=== PATIENT | female | born 1980 | race Caucasian/White ===

== ENCOUNTER 2017-03-17 07:51 | Day surgery (SDC) | payer OTHER ==
--- NOTE | 2017-03-13 11:45 | PREOPHP ---
DATE OF ADMISSION: 02/12/2016 HISTORY OF PRESENT ILLNESS: This is a 36-year-old female, 7, para 4, with 3 previous cassidy an sections and tubal ligation. This patient had been scheduled for a D and C hysteroscopy, hydroth ermal ablation for Monday the due to intractable chronic pelvic pain, menometrorrhagia, fibroid uterus, pelvic adhesions and pelvic pain, intractable. This patient had tried control pills, at this present time she has a tubal ligation after 3 sections. She does not want to take any other options since she would like to try an ablation and hydrothermal ablation to reduce the bl eeding and maybe reduce her pain. She was offered also a Mirena IUD. She was given the possibiliti es of myomectomy and lysis of adhesions as well. All these possibilities were explained to her. Sh e for an ablation to see if that will reduce her bleeding and pain and this is what she is being adm itted for. PAST MEDICAL HISTORY: She had diabetes, breast biopsy, 3 C-sections, tubal ligation and she has hyp ertension. She is on metoprolol, glipizide, metformin, vitamins. ALLERGIES: SHE IS NOT ALLERGIC TO ANY MEDICATIONS. SOCIAL HISTORY: She does not drink or smoke. FAMILY HISTORY: Diabetes. She also had a breast biopsy which was negative. PHYSICAL EXAMINATION: GENERAL APPEARANCE: Obesity. VITAL SIGNS: She weighs 164. She is 5'1, blood pressure is 100/60. She is afebrile. Pulse is 80. HEAD AND NECK: Normal. BREASTS: With fibrocystic breasts, severe, fibrocystic. No masses. Normal sinus rhythm. CHEST: Clear. HEART: Normal sinus rhythm. BACK: Abnormal. ABDOMEN: Soft, nontender, no masses. GENITALIA: Normal externally. The uterus is with irregularities with fibroids with severe pain on mobilization with adhesions. Adnexa are negative. RECTAL: None. EXTREMITIES: Normal x2. DIAGNOSES: 1. Fibroid uterus. 2. Intractable pelvic pain and menometrorrhagia, intractable. 3. Diabetes. 4. Hypertension. 5. Obesity. 6. Previous tubal ligation. She is undergoing a D and C, hysteroscopy and hydrothermal ablation. She has been advised of the po ssible risks and possible complications of the surgery with her alternatives and options. Written i nformation was provided. She had no more questions and agreed to go ahead with the procedure with f ull understanding and no more questions. Dictated By: FELICIA MANN/NTS Conf#: [id number] DID#: [id number]
[2017-03-16 11:50] VITALS: BMI 31.2
[2017-03-17] VITALS (12 sets, daily range): BP systolic 100–144; BP diastolic 63–90; PULSE 76–87; RESP 14–18; Ht 154.9 cm; Wt 78.0 kg
[~2017-03-17] VITALS: Ht 154.9 cm; Wt 78.0 kg
[~2017-03-17 07:51] MED LIST: ASPI-664 PO; ATOR40TA68 PO; CEFAZOLIN 1 GM INJ ONE; METO50TA16 PO; ONDANSETRON 4 MG INJ ONE; ROCURONIUM 50 MG INJ ONE
[2017-03-17] MEDS ORDERED: CEFAZOLIN 2 GM/50 ML (PMX) 50 ML IVPB ONE (09:00)
[2017-03-17] MEDS ORDERED: DEXTROSE 5%-LR 1,000 ML IV ONE (09:00)
[2017-03-17 09:05] LABS: ADD SCAN DIFF NO
[2017-03-17] MEDS ORDERED: LOVA20TA PO (09:06)
[2017-03-17] MEDS ORDERED: IBUP800T25 PO (09:06)
[2017-03-17] MEDS ORDERED: [UNRECOGNIZED DRUG - OTHER] (09:06)
[2017-03-17] MEDS ORDERED: GABA300C16 PO (09:06)
[2017-03-17] MEDS ORDERED: HYDR-3605 PO (09:06)
[2017-03-17 09:08] LABS: BASOPHILS % 0.5 % (0.0-2.0); EOSINOPHILS # 0.1 10^3/ul (0.0-0.5); EOSINOPHILS % 1.6 % (0.0-7.0); HEMATOCRIT 29.8 % (37.0-47.0); LYMPHOCYTES # 2.3 10^3/ul (0.8-2.9); LYMPHOCYTES % 30.7 % (15.0-51.0); MEAN CORPUSCULAR HEMOGLOBIN 21.8 pg (29.0-33.0); MEAN CORPUSCULAR HGB CONC 30.2 g/dl (32.0-37.0); MEAN CORPUSCULAR VOLUME 72.2 fl (82.0-101.0); MEAN PLATELET VOLUME 9.6 fl (7.4-10.4); MONOCYTE # 0.5 10^3/ul (0.3-0.9); MONOCYTES % 6.9 % (0.0-11.0); NEUTROPHIL # 4.6 10^3/ul (1.6-7.5); PLATELET COUNT 398 10^3/UL (140-415); RED BLOOD COUNT 4.13 10^6/ul (4.20-5.40); RED CELL DISTRIBUTION WIDTH 14.8 % (11.5-14.5); WHITE BLOOD COUNT 7.6 10^3/ul (4.8-10.8)
[2017-03-17 09:26] LABS: INR 0.93; PROTIME 12.5 Sec (12.2-14.2)
[2017-03-17 09:27] LABS: PARTIAL THROMBOPLASTIN TIME 28.9 Sec (25.0-35.0)
[2017-03-17] MEDS ORDERED: PROPOFOL 100 ML ONE (10:03)
[2017-03-17] MEDS ORDERED: FENTAnyl 50 MCG/ML VIAL ONE ×3 (10:06→11:31)
--- NOTE | 2017-03-17 10:13 | HPN ---
Date/Time of Note Date/Time of Note DATE: 03/17/17 TIME: 10:12 Interval H&P Admission Note Pt. seen H&P reviewed: No system changes FELICIA DUBON MD Mar 17, 2017 10:12
--- NOTE | 2017-03-17 10:15 | RADRPT ---
Vent Rate: 84 bpm RR Interval: 0 msec [place] Interval: 162 msec QRS Duration: 72 msec QT Interval: 396 msec QTC Interval: 467 msec P-R-T [place]: 58 - 29 - 19 degrees Normal sinus rhythm Normal ECG Electronically Signed By: Primo Christian [id number]
[2017-03-17] MEDS ORDERED: DEXAMETHASONE 4 MG/ML 1 ML INJ ONE (10:25)
[2017-03-17] MEDS ORDERED: LIDOCAINE 2% (SDV) 5 ML INJ ONE (10:25)
--- NOTE | 2017-03-17 11:12 | PD.PPDC ---
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
[2017-03-17] MEDS ORDERED: KETOROLAC 30 MG INJ IV STA (11:16)
--- NOTE | 2017-03-17 11:16 | OPR ---
Date/Time of Note Date/Time of Note DATE: 03/17/17 TIME: 11:13 Operative Report Procedure Date: Mar 17, 2017 Preoperative Diagnosis INTRACTABLE PELVIC PAIN AND BLEEDING FIBROID UTERUS PREVIOUS C/STL DIABETES Postoperative Diagnosis SAME Operation Performed FX D&C HYSTEROSCOPY HYDROTHERMAL ABLATION Anesthesia: general Anesthesiologist: ITZEL ANDERSON Estimated Blood Loss: minimal Complications: None Pt Condition Post Procedure: stable Disposition: PACU FELICIA DUBON MD Mar 17, 2017 11:16
[2017-03-17] MEDS ORDERED: KETOROLAC 30 MG INJ IV ONE (11:30)
[2017-03-17] MEDS ORDERED: ONDANSETRON 4 MG INJ IV PRN (11:30)
[2017-03-17] MEDS ORDERED: LABETALOL HCL 20MG INJ IV PRN (11:30)
[2017-03-17] MEDS ORDERED: FENTAnyl 50 MCG/ML VIAL IV PRN ×3 (11:30)
[2017-03-17] MEDS ORDERED: hydrALAzine 20 MG INJ IV PRN (11:30)
[2017-03-17] MEDS ORDERED: MEPERIDINE 25 MG INJ IV PRN (11:30)
[2017-03-17] MEDS ORDERED: OXYCODONE/ACETAMINOPHEN (5/325) TAB PO PRN ×2 (11:30)
[2017-03-17] MEDS ORDERED: DIPHENHYDRAMINE 50 MG INJ IV PRN (11:30)
[2017-03-17] MEDS ORDERED: DIPHENHYDRAMINE 50 MG INJ ONE (11:32)
--- NOTE | 2017-03-17 11:48 | OPR ---
DATE OF OPERATION: 03/17/2017 PROCEDURES: 1. Fractional D and C. 2. Hysteroscopy. 3. Hydrothermal ablation. PREOPERATIVE DIAGNOSES: 1. Intractable pelvic pain and bleeding. 2. Fibroid uterus. 3. Previous section, tubal ligation, and diabetes. POSTOPERATIVE DIAGNOSES: 1. Intractable pelvic pain and bleeding. 2. Fibroid uterus. 3. Previous section, tubal ligation, and diabetes. SURGEON: Felicia Dale MD ANESTHESIOLOGIST: Dr. Victoria. ANESTHESIA: General. DESCRIPTION OF PROCEDURE: The patient was given general anesthesia, placed in the lithotomy positio n. The perineal and vaginal area were prepped and draped. ____ examination under anesthesia reveal ed that there was marked pelvic prolapse. The uterus was not prolapsed. The cervix was held with a forceps and endocervical curettage was done. The uterus was sounded to a depth of 11 cm, dilated t o a #7 Hegar dilator, and the hysteroscope was placed. The hysteroscopy was done finding fibroids t hat were protruding through the endometrial area posteriorly and superiorly. They were not in the c avity, but they were submucosal fibroids. The hysteroscope media was injected and the temperature w as up to 90 degrees Celsius and the ablation with hydrothermal ablation was started for 10 minutes. The lining of the uterus appeared to change in color after finishing the procedure. Prior to that, scraping of the endometrium was done and some tissue was sent for histopathology. The procedure wa s finished by removing all the instruments. The patient tolerated the procedure well and left the O R awake and stable. Sponge counts and instrument counts were correct. Intravenous antibiotics were given for prophylaxis. Dictated By: FELICIA MANN/LUL Conf#: [id number] DID#: [id number]
[2017-03-17 13:35] LABS: ADD UMIC YES; UR ASCORBIC ACID NEGATIVE (NEGATIVE); UR BACTERIA FEW /HPF (NONE SEEN); UR BILIRUBIN (Dip) NEGATIVE (NEGATIVE); UR BLOOD (Dip) 1+ mg/dL (NEGATIVE); UR CLARITY SLIGHTLY CLOUDY (CLEAR); UR COLOR YELLOW (YELLOW); UR GLUCOSE (Dip) 1+ mg/dL (NEGATIVE); UR KETONES (Dip) NEGATIVE (NEGATIVE); UR LEUKOCYTE ESTERASE (Dip) TRACE Leu/ul (NEGATIVE); UR NITRITE (Dip) NEGATIVE (NEGATIVE); UR RBC 0 /HPF (0-5); UR SPECIFIC GRAVITY (Dip) 1.012 (1.003-1.030); UR SQUAMOUS EPITHELIAL CELL FEW /HPF (FEW); UR TOTAL PROTEIN (Dip) NEGATIVE (NEGATIVE); UR UROBILINOGEN (Dip) NEGATIVE (NEGATIVE)
== END 2017-03-17 13:40 | disposition home or self-care (01) ==
LOC: SDS 07:51
PROVIDERS: ATTEND Obstetrics & Gynecology
DX: D25.9 Leiomyoma of uterus, unspecified (principal); I10 Essential (primary) hypertension; E11.9 Type 2 diabetes mellitus without complications; E66.9 Obesity, unspecified; Z68.32 Body mass index [BMI] 32.0-32.9, adult
CPT/HCPCS: 58563; 81001; 82962; 85025; 85610; 85730; 88305; 93005; J0690; J1100; J1200; J1885; J2405; J3010; J7121; Z7512; Z7610

== ENCOUNTER 2018-09-07 06:17 | Inpatient (IN) | END 2018-09-09 13:30 | disposition home or self-care (01) | DRG 941 ==